=== PATIENT | male | born 2000 | race African-American/Black ===

== ENCOUNTER 2021-07-17 09:30 | Emergency (ER) | payer MEDICAID, OTHER ==
[~2021-07-17] VITALS: Ht 175.3 cm; Wt 87.0 kg
[2021-07-17] MEDS ORDERED: HYDROCODONE/ACETAMINOPHEN 5/325MG TABLET PO ONE (10:00)
[2021-07-17] MEDS ORDERED: HYDR-4001 MT (11:35)
[2021-07-17] MEDS ORDERED: IBUP-2029 MT (11:35)
[2021-07-17 12:01] VITALS: BP 135/65
== END 2021-07-17 12:02 | disposition home or self-care (01) ==
LOC: ER 11:23
DX: S52.124A Nondisplaced fracture of head of right radius, initial encounter for closed fracture (principal); W01.0XXA Fall on same level from slipping, tripping and stumbling without subsequent striking against object, initial encounter; Z91.81 History of falling; Y93.89 Activity, other specified; Y92.018 Other place in single-family (private) house as the place of occurrence of the external cause
CPT/HCPCS: 29105; 73070; 73090; 99284; A4565

== ENCOUNTER 2021-07-23 07:25 | Emergency (ER) | payer OTHER ==
[~2021-07-23] VITALS: Ht 175.3 cm; Wt 89.0 kg
[~2021-07-23 07:25] MED LIST: HYDR-4001 MT; IBUP-2029 MT
[2021-07-23 09:45] VITALS: BP 121/86
== END 2021-07-23 10:08 | disposition home or self-care (01) ==
LOC: ER 07:25
DX: M25.531 Pain in right wrist (principal)
CPT/HCPCS: 73080; 99283; A4565

== ENCOUNTER 2024-11-27 23:45 | Emergency (ER) | payer MEDICAID ==
[~2024-11-27] VITALS: Ht 177.8 cm; Wt 103.4 kg
[2024-11-27 23:51] VITALS: O2SAT 99
[2024-11-27 23:52] VITALS: BP 147/78; PULSE 112; RESP 15; TEMP 37.1; O2SAT 99
== END 2024-11-28 01:42 | disposition left against medical advice (07) ==
LOC: ER 23:57
DX: H92.01 Otalgia, right ear (principal); Z53.21 Procedure and treatment not carried out due to patient leaving prior to being seen by health care provider